=== PATIENT | female | born 1940 | race Caucasian/White ===

== ENCOUNTER 2023-05-28 12:20 | Inpatient (IN) | payer OTHER ==
[2023-05-28 14:19] LABS: BASO % 1.3 % (0-2.0); EOS % 4.6 % (0-4.5); HEMATOCRIT 34.4 % (32.4-45.2); HEMOGLOBIN 11.5 GM/dL (10.7-15.3); LYMPH % 12.4 % (8-40); MCH 29.6 pg (25.7-33.7); MCHC 33.3 g/dl (32.0-36.0); MEAN CELL VOLUME 89.1 fl (80-96); MEAN PLT VOLUME 8.3 fl (7.5-11.1); MONO % 7.3 % (3.8-10.2); NEUT % 74.4 % (42.8-82.8); PLATELET COUNT 281 10^3/uL (134-434); RBC 3.86 M/mm3 (3.60-5.2); RDW 13.3 % (11.6-15.6); WHITE BLOOD COUNT 8.1 K/mm3 (4.0-10.0)
[2023-05-28 14:34] LABS: INR 2.08 (0.83-1.09); PROTHROMBIN TIME (PATIENT) 23.9 SEC (9.7-13.0)
[2023-05-28 14:37] LABS: ACTIVATED PTT 37.9 SECONDS (25.2-36.5)
[2023-05-28 14:48] LABS: POTASSIUM 4.5 mmol/L (3.5-5.1)
[2023-05-28 14:50] LABS: ALBUMIN 3.1 g/dl (3.4-5.0); CALCIUM 9.8 mg/dL (8.5-10.1); MAGNESIUM 2.7 mg/dL (1.8-2.4)
[2023-05-28 14:53] LABS: CREATININE 4.4 mg/dL (0.55-1.3); PHOSPHOROUS 5.4 mg/dL (2.5-4.9)
[2023-05-28 14:55] LABS: BILIRUBIN,TOTAL 0.5 mg/dL (0.2-1); BLOOD UREA NITROGEN 44.2 mg/dL (7-18); TOT PROT 7.2 g/dl (6.4-8.2)
[2023-05-28 15:56] LABS: EPI CELLS 0 /uL (0-25.1); HYALINE CASTS 0 /uL (0-3.1); URINE APPEARANCE CLEAR; URINE BACTERIA 4720 /uL (0-1359); URINE BILIRUBIN NEGATIVE (NEGATIVE); URINE COLOR YELLOW; URINE GLUCOSE (UA) NEGATIVE (NEGATIVE); URINE KETONE NEGATIVE (NEGATIVE); URINE LEUK ESTERASE 3+ (NEGATIVE); URINE NITRITE POSITIVE (NEGATIVE); URINE PROTEIN 1+ (NEGATIVE); URINE RBC 101 /uL (0-23.9); URINE UROBILINOGEN 0.2 mg/dL (0.2-1.0); URINE WBC 1525 /uL (0-25.8)
[2023-05-28] MEDS ORDERED: PIPERACILLIN/TAZOB 2.25 GM 2.25 GM in DEXTROSE 5%-WATER - 50 ML IVPB ONE (17:11)
[2023-05-28] MEDS ORDERED: CEFTRIAXONE 1,000 MG in DEXTROSE 5%-WATER - 50 ML IVPB ONE (17:21)
[2023-05-28] MEDS ORDERED: CEFTRIAXONE 1 GM/50 ML BAG ONE (17:49)
[2023-05-28] MEDS ORDERED: LACTATED RINGERS SOLUTION 1000 ML INFUS.BAG IV ONE (19:00)
[2023-05-28] MEDS ORDERED: ACETAMINOPHEN 1000 MG/100 ML BAG IVPB ONE (19:00)
[2023-05-28] MEDS ORDERED: ACETAMINOPHEN INJECTION 100 ML IVPB ONE (19:57)
[2023-05-28] MEDS ORDERED: TAMSULOSIN HCL 0.4 MG CAP PO SCH (21:32)
[2023-05-28] MEDS ORDERED: LIDOCAINE PATCH REMOVAL MC SCH (22:00)
[2023-05-28] MEDS ORDERED: POLYETHYLENE GLYCOL (HEALTHYLAX) 3350 17 GM PACKET PO PRN (22:57)
[2023-05-28] MEDS ORDERED: LIDOCAINE HCL TP PRN (22:57)
[2023-05-28] MEDS ORDERED: MAG HYDROX/AL HYDROX/SIMETH 30 ML UNIT-DOSE CUP PO PRN (22:57)
[2023-05-28] MEDS ORDERED: SENNOSIDES 8.6MG TABLET (FP) PO PRN (22:57)
[2023-05-28] MEDS ORDERED: LIDOCAINE 5% TOPICAL PATCH TP PRN (22:57)
[2023-05-28] MEDS ORDERED: MEROPENEM 500 MG in DEXTROSE 5%-WATER 100 ML IVPB SCH (23:15)
[2023-05-29] MEDS ORDERED: MEROPENEM 500 MG VIAL (RESTRICTED TO ID) IVPB ONE (00:07)
[2023-05-29 00:48] VITALS: BMI 26.9
[2023-05-29] MEDS ORDERED: ACETAMINOPHEN 1000 MG/100 ML BAG IVPB ONE (02:00)
[2023-05-29] MEDS: BRIMONIDINE TARTRATE 0.15% OPHTHALMIC 5 ML BOTTLE OD SCH ×3 (02:22→21:36)
[2023-05-29] MEDS ORDERED: TAMSULOSIN HCL 0.4 MG CAP PO SCH (08:30)
[2023-05-29] MEDS ORDERED: ONDANSETRON 4 MG/2 ML VIAL IVPUSH PRN ×2 (08:36→10:29)
[2023-05-29] MEDS ORDERED: LACTATED RINGERS SOLUTION 1,000 ML IV SCH ×2 (08:45→10:29)
[2023-05-29] MEDS ORDERED: MIDAZOLAM HCL 2 MG/2 ML SINGLE DOSE VIAL ONE (08:52)
[2023-05-29] MEDS ORDERED: PROPOFOL 20 ML ONE (08:52)
[2023-05-29] MEDS ORDERED: LIDOCAINE HCL/PF 2% SDV 5ML VIAL ONE (08:52)
[2023-05-29] MEDS ORDERED: DEXAMETHASONE SOD PHOSPHATE 4 MG/1 ML VIAL ONE (09:16)
[2023-05-29] MEDS ORDERED: ONDANSETRON 4 MG/2 ML VIAL ONE (09:16)
[2023-05-29] MEDS ORDERED: CYANOCOBALAMIN 1,000 MCG TABLET (FP) PO SCH (10:00)
[2023-05-29] MEDS ORDERED: PANTOPRAZOLE 40 MG TABLET PO SCH (10:00)
[2023-05-29] MEDS ORDERED: TIMOLOL 0.5% OPHTHALMIC SOL 5 ML BOTTLE OD SCH (10:00)
[2023-05-29] MEDS ORDERED: PATIENT'S OWN MEDICATION (NON-FORMULARY) (Menthol/Zinc Oxide [Calmoseptine Ointment] 71 GM TP SCH ×2 (10:00→22:00)
[2023-05-29] MEDS ORDERED: NIFEdipine E.R. 90 MG TABLET PO SCH (10:00)
[2023-05-29] MEDS ORDERED: POLYETHYLENE GLYCOL (HEALTHYLAX) 3350 17 GM PACKET PO PRN (10:29)
[2023-05-29] MEDS ORDERED: LIDOCAINE 5% TOPICAL PATCH TP PRN (10:29)
[2023-05-29] MEDS ORDERED: LIDOCAINE HCL TP PRN (10:29)
[2023-05-29] MEDS ORDERED: SENNOSIDES 8.6MG TABLET (FP) PO PRN (10:29)
[2023-05-29] MEDS ORDERED: MEROPENEM 500 MG in DEXTROSE 5%-WATER 100 ML IVPB SCH ×2 (11:15→23:00)
[2023-05-29 12:52] LABS: HEMATOCRIT 33.5 % (32.4-45.2); HEMOGLOBIN 11.1 GM/dL (10.7-15.3); PLATELET COUNT 268 10^3/uL (134-434); RBC 3.68 M/mm3 (3.60-5.2); RDW 13.1 % (11.6-15.6); WHITE BLOOD COUNT 9.5 K/mm3 (4.0-10.0)
[2023-05-29 13:16] LABS: POTASSIUM 4.2 mmol/L (3.5-5.1)
[2023-05-29 13:19] LABS: CALCIUM 9.2 mg/dL (8.5-10.1)
[2023-05-29 13:20] LABS: ALBUMIN 2.8 g/dl (3.4-5.0); MAGNESIUM 2.4 mg/dL (1.8-2.4)
[2023-05-29 13:23] LABS: CREATININE 3.7 mg/dL (0.55-1.3); PHOSPHOROUS 5.2 mg/dL (2.5-4.9)
[2023-05-29 13:24] LABS: BILIRUBIN,TOTAL 0.5 mg/dL (0.2-1); TOT PROT 6.9 g/dl (6.4-8.2)
[2023-05-29] MEDS: LACTATED RINGERS SOLUTION 1,000 ML IV SCH (15:07)
[2023-05-29] MEDS: CEFTRIAXONE 2 GM in DEXTROSE 5%-WATER 100 ML IVPB SCH (18:04)
[2023-05-29] MEDS: LIDOCAINE PATCH REMOVAL MC SCH (21:37)
[2023-05-30] MEDS: LACTATED RINGERS SOLUTION 1,000 ML IV SCH ×2 (05:36→18:17)
[2023-05-30] MEDS: TAMSULOSIN HCL 0.4 MG CAP PO SCH (08:40)
[2023-05-30 08:51] LABS: HEMATOCRIT 32.1 % (32.4-45.2); HEMOGLOBIN 10.7 GM/dL (10.7-15.3); MCH 30.2 pg (25.7-33.7); MCHC 33.2 g/dl (32.0-36.0); MEAN CELL VOLUME 91.1 fl (80-96); MEAN PLT VOLUME 8.5 fl (7.5-11.1); PLATELET COUNT 278 10^3/uL (134-434); RBC 3.53 M/mm3 (3.60-5.2); RDW 13.2 % (11.6-15.6); WHITE BLOOD COUNT 8.5 K/mm3 (4.0-10.0)
[2023-05-30 09:12] LABS: POTASSIUM 3.9 mmol/L (3.5-5.1)
[2023-05-30 09:15] LABS: BLOOD UREA NITROGEN 31.5 mg/dL (7-18); CALCIUM 8.7 mg/dL (8.5-10.1)
[2023-05-30 09:16] LABS: ALBUMIN 2.7 g/dl (3.4-5.0); MAGNESIUM 2.1 mg/dL (1.8-2.4)
[2023-05-30 09:18] LABS: CREATININE 2.9 mg/dL (0.55-1.3)
[2023-05-30 09:20] LABS: BILIRUBIN,TOTAL 0.2 mg/dL (0.2-1); TOT PROT 6.5 g/dl (6.4-8.2)
[2023-05-30] MEDS: ZINC OXIDE 20% TOPICAL OINTMENT 30 GM TUBE TP SCH (09:53)
[2023-05-30] MEDS: CEFTRIAXONE 2 GM in DEXTROSE 5%-WATER 100 ML IVPB SCH (09:53)
[2023-05-30] MEDS: CYANOCOBALAMIN 1,000 MCG TABLET (FP) PO SCH (09:54)
[2023-05-30] MEDS: PANTOPRAZOLE 40 MG TABLET PO SCH (09:54)
[2023-05-30] MEDS: NIFEdipine E.R. 90 MG TABLET PO SCH (09:54)
[2023-05-30] MEDS: BRIMONIDINE TARTRATE 0.15% OPHTHALMIC 5 ML BOTTLE OD SCH ×2 (09:56→21:46)
[2023-05-30] MEDS: TIMOLOL 0.5% OPHTHALMIC SOL 5 ML BOTTLE OD SCH (10:04)
[2023-05-30] MEDS: LIDOCAINE PATCH REMOVAL MC SCH (22:42)
[2023-05-31] MEDS: LACTATED RINGERS SOLUTION 1,000 ML IV SCH ×2 (06:25→19:03)
[2023-05-31] MEDS: TAMSULOSIN HCL 0.4 MG CAP PO SCH (08:24)
[2023-05-31 09:27] LABS: BASO % 1.7 % (0-2.0); EOS % 8.9 % (0-4.5); HEMATOCRIT 31.5 % (32.4-45.2); LYMPH % 14.7 % (8-40); MCH 30.9 pg (25.7-33.7); MCHC 34.7 g/dl (32.0-36.0); MEAN CELL VOLUME 88.8 fl (80-96); MEAN PLT VOLUME 7.9 fl (7.5-11.1); MONO % 7.2 % (3.8-10.2); NEUT % 67.5 % (42.8-82.8); PLATELET COUNT 260 10^3/uL (134-434); RBC 3.55 M/mm3 (3.60-5.2); RDW 13.2 % (11.6-15.6)
[2023-05-31 09:52] LABS: POTASSIUM 3.6 mmol/L (3.5-5.1)
[2023-05-31 09:54] LABS: ALBUMIN 2.6 g/dl (3.4-5.0)
[2023-05-31 09:55] LABS: BLOOD UREA NITROGEN 24.1 mg/dL (7-18)
[2023-05-31 09:59] LABS: BILIRUBIN,TOTAL 0.2 mg/dL (0.2-1); TOT PROT 6.3 g/dl (6.4-8.2)
[2023-05-31] MEDS: CYANOCOBALAMIN 1,000 MCG TABLET (FP) PO SCH (10:08)
[2023-05-31] MEDS: NIFEdipine E.R. 90 MG TABLET PO SCH (10:08)
[2023-05-31] MEDS: CEFTRIAXONE 2 GM in DEXTROSE 5%-WATER 100 ML IVPB SCH (10:09)
[2023-05-31] MEDS: PANTOPRAZOLE 40 MG TABLET PO SCH (10:09)
[2023-05-31] MEDS: ZINC OXIDE 20% TOPICAL OINTMENT 30 GM TUBE TP SCH (10:12)
[2023-05-31] MEDS: TIMOLOL 0.5% OPHTHALMIC SOL 5 ML BOTTLE OD SCH (10:12)
[2023-05-31] MEDS: BRIMONIDINE TARTRATE 0.15% OPHTHALMIC 5 ML BOTTLE OD SCH ×2 (10:12→21:46)
[2023-05-31] MEDS: LIDOCAINE PATCH REMOVAL MC SCH (21:47)
[2023-06-01] MEDS: TAMSULOSIN HCL 0.4 MG CAP PO SCH (08:43)
[2023-06-01] MEDS: LACTATED RINGERS SOLUTION 1,000 ML IV SCH ×2 (09:30→15:41)
[2023-06-01] MEDS: PANTOPRAZOLE 40 MG TABLET PO SCH (09:31)
[2023-06-01] MEDS: CEFTRIAXONE 2 GM in DEXTROSE 5%-WATER 100 ML IVPB SCH (09:31)
[2023-06-01] MEDS: NIFEdipine E.R. 90 MG TABLET PO SCH (09:31)
[2023-06-01] MEDS: CYANOCOBALAMIN 1,000 MCG TABLET (FP) PO SCH (09:31)
[2023-06-01] MEDS: TIMOLOL 0.5% OPHTHALMIC SOL 5 ML BOTTLE OD SCH (09:35)
[2023-06-01] MEDS: BRIMONIDINE TARTRATE 0.15% OPHTHALMIC 5 ML BOTTLE OD SCH ×2 (09:35→21:29)
[2023-06-01] MEDS: ZINC OXIDE 20% TOPICAL OINTMENT 30 GM TUBE TP SCH (09:36)
[2023-06-01] MEDS ORDERED: BISACODYL 5 MG TABLET.DR (FP) PO PRN (10:01)
[2023-06-01] MEDS: SENNOSIDES 8.6MG TABLET (FP) PO SCH ×2 (10:32→21:28)
[2023-06-01 10:33] LABS: BASO % 1.7 % (0-2.0); EOS % 9.2 % (0-4.5); HEMOGLOBIN 10.8 GM/dL (10.7-15.3); LYMPH % 14.2 % (8-40); MCH 30.6 pg (25.7-33.7); MCHC 33.6 g/dl (32.0-36.0); MEAN PLT VOLUME 8.7 fl (7.5-11.1); MONO % 8.2 % (3.8-10.2); NEUT % 66.7 % (42.8-82.8); PLATELET COUNT 250 10^3/uL (134-434); RBC 3.52 M/mm3 (3.60-5.2); RDW 13.2 % (11.6-15.6); WHITE BLOOD COUNT 6.7 K/mm3 (4.0-10.0)
[2023-06-01 10:57] LABS: POTASSIUM 3.5 mmol/L (3.5-5.1)
[2023-06-01 10:59] LABS: BLOOD UREA NITROGEN 17.1 mg/dL (7-18); MAGNESIUM 1.7 mg/dL (1.8-2.4)
[2023-06-01 11:02] LABS: CREATININE 1.5 mg/dL (0.55-1.3); PHOSPHOROUS 3.2 mg/dL (2.5-4.9)
[2023-06-01 11:07] LABS: CALCIUM 9.3 mg/dL (8.5-10.1)
[2023-06-01] MEDS ORDERED: MAGNESIUM OXIDE 400 MG TABLET (FP) PO ONE (15:05)
[2023-06-01] MEDS: POTASSIUM CHLORIDE 10 MEQ in SODIUM CHLORIDE 0.45% 1,000 ML IVPB SCH (17:36)
[2023-06-01] MEDS: LIDOCAINE PATCH REMOVAL MC SCH (21:30)
[2023-06-02] MEDS: POTASSIUM CHLORIDE 10 MEQ in SODIUM CHLORIDE 0.45% 1,000 ML IVPB SCH (05:20)
[2023-06-02] MEDS: TAMSULOSIN HCL 0.4 MG CAP PO SCH (08:50)
[2023-06-02 09:14] LABS: POTASSIUM 3.4 mmol/L (3.5-5.1)
[2023-06-02 09:18] LABS: CALCIUM 8.8 mg/dL (8.5-10.1)
[2023-06-02 09:19] LABS: ALBUMIN 2.7 g/dl (3.4-5.0); MAGNESIUM 1.6 mg/dL (1.8-2.4)
[2023-06-02 09:21] LABS: PHOSPHOROUS 3.1 mg/dL (2.5-4.9)
[2023-06-02 09:22] LABS: CREATININE 1.4 mg/dL (0.55-1.3)
[2023-06-02 09:23] LABS: BILIRUBIN,TOTAL 0.2 mg/dL (0.2-1); TOT PROT 6.4 g/dl (6.4-8.2)
[2023-06-02] MEDS: CYANOCOBALAMIN 1,000 MCG TABLET (FP) PO SCH (09:58)
[2023-06-02] MEDS: TIMOLOL 0.5% OPHTHALMIC SOL 5 ML BOTTLE OD SCH (09:58)
[2023-06-02] MEDS: BRIMONIDINE TARTRATE 0.15% OPHTHALMIC 5 ML BOTTLE OD SCH ×2 (09:58→21:37)
[2023-06-02] MEDS: NIFEdipine E.R. 90 MG TABLET PO SCH (09:58)
[2023-06-02] MEDS: CEFTRIAXONE 2 GM in DEXTROSE 5%-WATER 100 ML IVPB SCH (09:58)
[2023-06-02] MEDS: PANTOPRAZOLE 40 MG TABLET PO SCH (09:58)
[2023-06-02] MEDS: SENNOSIDES 8.6MG TABLET (FP) PO SCH ×2 (09:58→21:36)
[2023-06-02] MEDS: ZINC OXIDE 20% TOPICAL OINTMENT 30 GM TUBE TP SCH (09:59)
[2023-06-02] MEDS ORDERED: MAGNESIUM 2GM/50ML STERILE WATER IVPB IVPB ONE (10:30)
[2023-06-02] MEDS ORDERED: POTASSIUM CHLORIDE TABS 20 MEQ TABLET.ER (FP) PO ONE (10:30)
[2023-06-02] MEDS ORDERED: POTASSIUM CHLORIDE ORAL LIQUID 20 MEQ/15 ML PO ONE (14:30)
[2023-06-02] MEDS ORDERED: MAGNESIUM OXIDE 400 MG TABLET (FP) PO ONE (14:30)
[2023-06-02] MEDS ORDERED: POTASSIUM CHLORIDE 10 MEQ in SODIUM CHLORIDE 0.45% 1,000 ML IVPB SCH (15:00)
[2023-06-02] MEDS: LIDOCAINE PATCH REMOVAL MC SCH (21:37)
[2023-06-03] MEDS: NIFEdipine E.R. 90 MG TABLET PO SCH (10:33)
[2023-06-03] MEDS: CEFTRIAXONE 2 GM in DEXTROSE 5%-WATER 100 ML IVPB SCH (10:34)
[2023-06-03] MEDS: TIMOLOL 0.5% OPHTHALMIC SOL 5 ML BOTTLE OD SCH (10:34)
[2023-06-03] MEDS: TAMSULOSIN HCL 0.4 MG CAP PO SCH (10:34)
[2023-06-03] MEDS: CYANOCOBALAMIN 1,000 MCG TABLET (FP) PO SCH (10:34)
[2023-06-03] MEDS: SENNOSIDES 8.6MG TABLET (FP) PO SCH ×2 (10:34→21:29)
[2023-06-03] MEDS: PANTOPRAZOLE 40 MG TABLET PO SCH (10:34)
[2023-06-03] MEDS: BRIMONIDINE TARTRATE 0.15% OPHTHALMIC 5 ML BOTTLE OD SCH ×2 (10:34→21:30)
[2023-06-03] MEDS: ZINC OXIDE 20% TOPICAL OINTMENT 30 GM TUBE TP SCH (10:34)
[2023-06-03] MEDS ORDERED: SEVOFLURANE 250 ML BTL ONE (11:15)
[2023-06-03] MEDS ORDERED: SUCCINYLCHOLINE CHLORIDE 200 MG/10 ML SYRINGE ONE (11:15)
[2023-06-03] MEDS ORDERED: ONDANSETRON 4 MG/2 ML VIAL ONE (11:52)
[2023-06-03 12:14] LABS: BLOOD UREA NITROGEN 17.3 mg/dL (7-18)
[2023-06-03 12:16] LABS: PHOSPHOROUS 3.3 mg/dL (2.5-4.9)
[2023-06-03 12:17] LABS: CALCIUM 8.9 mg/dL (8.5-10.1)
[2023-06-03 12:18] LABS: CREATININE 1.6 mg/dL (0.55-1.3); MAGNESIUM 2.2 mg/dL (1.8-2.4)
[2023-06-03] MEDS ORDERED: ONDANSETRON 4 MG/2 ML VIAL IVPUSH PRN ×2 (12:32→12:55)
[2023-06-03] MEDS ORDERED: LACTATED RINGERS SOLUTION 1,000 ML IV SCH ×2 (12:45→12:55)
[2023-06-03] MEDS ORDERED: LIDOCAINE 5% TOPICAL PATCH TP PRN (12:55)
[2023-06-03] MEDS ORDERED: BISACODYL 5 MG TABLET.DR (FP) PO PRN (12:55)
[2023-06-03] MEDS ORDERED: POLYETHYLENE GLYCOL (HEALTHYLAX) 3350 17 GM PACKET PO PRN (12:55)
[2023-06-03] MEDS ORDERED: POTASSIUM CHLORIDE 10 MEQ in SODIUM CHLORIDE 0.45% 1,000 ML IVPB SCH (15:00)
[2023-06-03] MEDS ORDERED: LIDOCAINE PATCH REMOVAL MC SCH (22:00)
[2023-06-04] MEDS ORDERED: TAMSULOSIN HCL 0.4 MG CAP PO SCH (08:30)
[2023-06-04] MEDS: BRIMONIDINE TARTRATE 0.15% OPHTHALMIC 5 ML BOTTLE OD SCH (09:52)
[2023-06-04] MEDS: SENNOSIDES 8.6MG TABLET (FP) PO SCH (09:52)
[2023-06-04] MEDS ORDERED: CEFTRIAXONE 2 GM in DEXTROSE 5%-WATER 100 ML IVPB SCH (10:00)
[2023-06-04] MEDS ORDERED: NIFEdipine E.R. 90 MG TABLET PO SCH (10:00)
[2023-06-04] MEDS ORDERED: ZINC OXIDE 20% TOPICAL OINTMENT 30 GM TUBE TP SCH (10:00)
[2023-06-04] MEDS ORDERED: CYANOCOBALAMIN 1,000 MCG TABLET (FP) PO SCH (10:00)
[2023-06-04] MEDS ORDERED: TIMOLOL 0.5% OPHTHALMIC SOL 5 ML BOTTLE OD SCH (10:00)
[2023-06-04] MEDS ORDERED: PANTOPRAZOLE 40 MG TABLET PO SCH (10:00)
[2023-06-04 10:56] LABS: HEMATOCRIT 34.1 % (32.4-45.2); HEMOGLOBIN 11.1 GM/dL (10.7-15.3); MCH 29.9 pg (25.7-33.7); MCHC 32.6 g/dl (32.0-36.0); MEAN CELL VOLUME 91.7 fl (80-96); MEAN PLT VOLUME 8.9 fl (7.5-11.1); PLATELET COUNT 256 10^3/uL (134-434); RBC 3.72 M/mm3 (3.60-5.2); RDW 13.5 % (11.6-15.6); WHITE BLOOD COUNT 8.6 K/mm3 (4.0-10.0)
[2023-06-04 11:24] LABS: ALBUMIN 2.8 g/dl (3.4-5.0); CALCIUM 9.4 mg/dL (8.5-10.1)
[2023-06-04 11:25] LABS: MAGNESIUM 2.1 mg/dL (1.8-2.4)
[2023-06-04 11:26] LABS: PHOSPHOROUS 3.4 mg/dL (2.5-4.9)
[2023-06-04 11:27] LABS: CREATININE 1.4 mg/dL (0.55-1.3)
[2023-06-04 11:28] LABS: BILIRUBIN,TOTAL 0.2 mg/dL (0.2-1); TOT PROT 6.5 g/dl (6.4-8.2)
[2023-06-04 11:40] VITALS: RESP 18
[2023-06-04 17:33] VITALS: BP 116/59; PULSE 62; TEMP 98.9
== END 2023-06-04 17:43 | DRG 660 ==
LOC: JER 12:20 → JERBED 15:56 → J5S 05-29 01:03
PROVIDERS: ADMIT Internal Medicine
PROC: 0T778DZ Dilation of Left Ureter with Intraluminal Device, Via Natural or Artificial Opening Endoscopic (ICD-10-PCS; principal; 2023-06-03 12:00)
PROC: 0TF78ZZ Fragmentation in Left Ureter, Via Natural or Artificial Opening Endoscopic (ICD-10-PCS; 2023-06-03 12:00)
PROC: 0TP98DZ Removal of Intraluminal Device from Ureter, Via Natural or Artificial Opening Endoscopic (ICD-10-PCS; 2023-06-03 12:00)
PROC: BT1FZZZ Fluoroscopy of Left Kidney, Ureter and Bladder (ICD-10-PCS; 2023-06-03 12:00)
DX: N13.6 Pyonephrosis (principal); E87.0 Hyperosmolality and hypernatremia; I27.82 Chronic pulmonary embolism; E78.5 Hyperlipidemia, unspecified; N17.9 Acute kidney failure, unspecified; I12.9 Hypertensive chronic kidney disease with stage 1 through stage 4 chronic kidney disease, or unspecified chronic kidney disease; N18.9 Chronic kidney disease, unspecified; F20.9 Schizophrenia, unspecified; K21.9 Gastro-esophageal reflux disease without esophagitis; B96.20 Unspecified Escherichia coli [E. coli] as the cause of diseases classified elsewhere; I10 Essential (primary) hypertension; R79.1 Abnormal coagulation profile; D64.9 Anemia, unspecified; Z88.0 Allergy status to penicillin
CPT/HCPCS: 36415; 71045-TC-FY; 76000-TC-FY; 80048; 80053; 81003; 82360; 82550; 82570; 83735; 84100; 84156; 84300; 84550; 85025; 85027; 85610; 85730; 86850; 86900; 86901; 87086; 87186; 87635; 93005; 93010; 94760; 97116-GP; 97162-GP; 99285-25; C1758; C2617

== ENCOUNTER 2024-03-01 04:11 | Day surgery (SDC) | payer OTHER ==
[2024-02-15 08:58] VITALS: BMI 31.8
[2024-03-01 06:50] VITALS: RESP 20
[2024-03-01] MEDS ORDERED: MIDAZOLAM HCL 2 MG/2 ML SINGLE DOSE VIAL ONE (08:23)
[2024-03-01] MEDS: ceFAZolin SODIUM 1 GM VIAL IVPB ONE (08:35)
[2024-03-01] MEDS ORDERED: ceFAZolin SODIUM 1 GM VIAL ONE (08:36)
[2024-03-01] MEDS ORDERED: PROPOFOL 20 ML ONE (08:38)
[2024-03-01 10:50] VITALS: BP 140/70; PULSE 60; TEMP 97
== END 2024-03-01 10:35 | disposition home or self-care (01) ==
LOC: JASU-SURG 04:11
PROVIDERS: ATTEND Urology
PROC: 0TF4XZZ Fragmentation in Left Kidney Pelvis, External Approach (ICD-10-PCS; principal; 2024-03-01 08:30)
DX: N20.0 Calculus of kidney (principal)

== ENCOUNTER 2024-06-21 11:26 | Emergency (ER) | payer OTHER ==
[2024-06-21 11:32] VITALS: BP 131/85; PULSE 61; RESP 18; TEMP 97.4; BMI 29.7
== END 2024-06-21 12:50 | disposition home or self-care (01) ==
LOC: JER 11:26
DX: S00.83XA Contusion of other part of head, initial encounter (principal); W01.198A Fall on same level from slipping, tripping and stumbling with subsequent striking against other object, initial encounter; Y93.H2 Activity, gardening and landscaping
CPT/HCPCS: 99283-25

== ENCOUNTER 2025-02-04 21:57 | Inpatient (IN) | payer OTHER, BC ==
[2025-02-04 23:41] LABS: HEMATOCRIT 43.2 % (34.1-44.9); HEMOGLOBIN 14.3 g/dL (11.2-15.7); MCHC 33.1 g/dl (32.2-35.5); MEAN CELL VOLUME 91.1 fl (79.4-94.8); PLATELET COUNT 206 x10^3/uL (182-369); RDW 12.3 % (12.5-17.0)
[2025-02-05 00:01] LABS: POTASSIUM 3.9 mmol/L (3.5-5.1)
[2025-02-05 00:02] LABS: INR 2.14 (0.83-1.09); PROTHROMBIN TIME (PATIENT) 23.5 SEC (9.7-13.0)
[2025-02-05 00:03] LABS: BLOOD UREA NITROGEN 33.6 mg/dL (7-18); CALCIUM 9.7 mg/dL (8.5-10.1)
[2025-02-05 00:04] LABS: ALBUMIN 3.4 g/dl (3.4-5.0); MAGNESIUM 2.3 mg/dL (1.8-2.4)
[2025-02-05 00:05] LABS: ACTIVATED PTT 33.5 SECONDS (25.2-36.5)
[2025-02-05 00:08] LABS: CREATININE 2.2 mg/dL (0.55-1.3)
[2025-02-05 00:10] LABS: BILIRUBIN,TOTAL 0.9 mg/dL (0.2-1)
[2025-02-05] MEDS: SODIUM CHLORIDE 1,000 ML IV STA (00:27)
[2025-02-05 00:31] LABS: EPI CELLS 14 /uL (0-25.1); HYALINE CASTS 1 /uL (0-3.1); PH,URINE 6.5 (5.0-8.0); URINE APPEARANCE TURBID; URINE BILIRUBIN NEGATIVE (NEGATIVE); URINE COLOR ORANGE; URINE GLUCOSE (UA) 1+ (NEGATIVE); URINE KETONE TRACE (NEGATIVE); URINE LEUK ESTERASE 3+ (NEGATIVE); URINE NITRITE NEGATIVE (NEGATIVE); URINE PROTEIN 3+ (NEGATIVE); URINE RBC 8284 /uL (0-23.9); URINE WBC 7277 /uL (0-25.8)
[2025-02-05] MEDS ORDERED: ASPIRIN 325 MG TABLET ONE (00:50)
[2025-02-05] MEDS: ASPIRIN 325 MG TABLET PO ONE (01:03)
[2025-02-05 05:09] VITALS: BMI 27.3
[2025-02-05] MEDS: SODIUM CHLORIDE 1,000 ML IV SCH (05:20)
[2025-02-05] MEDS: POLYETHYLENE GLYCOL (HEALTHYLAX) 3350 17 GM PACKET PO ONE (06:47)
[2025-02-05] MEDS: TAMSULOSIN HCL 0.4 MG CAP PO SCH (08:29)
[2025-02-05 09:32] LABS: HEMATOCRIT 39.4 % (34.1-44.9); HEMOGLOBIN 13.2 g/dL (11.2-15.7); MCHC 33.5 g/dl (32.2-35.5); MEAN CELL VOLUME 91.2 fl (79.4-94.8); MEAN PLT VOLUME 10.4 fl (9.4-12.3); PLATELET COUNT 192 x10^3/uL (182-369); RDW 12.4 % (12.5-17.0)
[2025-02-05 09:48] LABS: POTASSIUM 3.6 mmol/L (3.5-5.1)
[2025-02-05 09:50] LABS: ALBUMIN 2.9 g/dl (3.4-5.0)
[2025-02-05 09:51] LABS: BLOOD UREA NITROGEN 41.2 mg/dL (7-18); MAGNESIUM 2.4 mg/dL (1.8-2.4)
[2025-02-05 09:54] LABS: CREATININE 2.1 mg/dL (0.55-1.3); PHOSPHOROUS 2.6 mg/dL (2.5-4.9)
[2025-02-05 09:55] LABS: BILIRUBIN,TOTAL 1.3 mg/dL (0.2-1); TOT PROT 6.2 g/dl (6.4-8.2)
[2025-02-05] MEDS: BISACODYL 10 MG SUPP.RECT PR ONE (16:30)
[2025-02-06 08:13] LABS: HEMATOCRIT 36.3 % (34.1-44.9); HEMOGLOBIN 11.9 g/dL (11.2-15.7); MCHC 32.8 g/dl (32.2-35.5); MEAN CELL VOLUME 91.9 fl (79.4-94.8); MEAN PLT VOLUME 10.5 fl (9.4-12.3); PLATELET COUNT 179 x10^3/uL (182-369); RDW 12.2 % (12.5-17.0)
[2025-02-06 08:30] LABS: POTASSIUM 3.7 mmol/L (3.5-5.1)
[2025-02-06 08:44] LABS: CALCIUM 8.6 mg/dL (8.5-10.1)
[2025-02-06 08:45] LABS: ALBUMIN 2.5 g/dl (3.4-5.0); BLOOD UREA NITROGEN 41.3 mg/dL (7-18); MAGNESIUM 2.2 mg/dL (1.8-2.4)
[2025-02-06 08:48] LABS: BILIRUBIN,TOTAL 0.6 mg/dL (0.2-1); CREATININE 1.7 mg/dL (0.55-1.3); PHOSPHOROUS 2.8 mg/dL (2.5-4.9); TOT PROT 5.4 g/dl (6.4-8.2)
[2025-02-07 07:11] LABS: HEMATOCRIT 37.5 % (34.1-44.9); HEMOGLOBIN 12.2 g/dL (11.2-15.7); MCHC 32.5 g/dl (32.2-35.5); MEAN CELL VOLUME 91.9 fl (79.4-94.8); MEAN PLT VOLUME 10.1 fl (9.4-12.3); PLATELET COUNT 187 x10^3/uL (182-369)
[2025-02-07 07:25] LABS: POTASSIUM 3.6 mmol/L (3.5-5.1)
[2025-02-07 07:29] LABS: MAGNESIUM 2.1 mg/dL (1.8-2.4)
[2025-02-07 07:30] LABS: ALBUMIN 2.4 g/dl (3.4-5.0); CALCIUM 8.6 mg/dL (8.5-10.1)
[2025-02-07 07:32] LABS: CREATININE 1.1 mg/dL (0.55-1.3); PHOSPHOROUS 2.2 mg/dL (2.5-4.9)
[2025-02-07 07:34] LABS: BILIRUBIN,TOTAL 0.4 mg/dL (0.2-1); TOT PROT 5.4 g/dl (6.4-8.2)
[2025-02-07] MEDS ORDERED: REGADENOSON 0.4 MG/5 ML PRE-FILLED SYRINGE IVPUSH ONE (09:30)
[2025-02-07] MEDS ORDERED: PATIENT'S OWN MEDICATION (NON-FORMULARY) (Nifedipine [Nifedipine Er] 90 MG Tablet.Er) PO SCH (10:00)
[2025-02-07] MEDS ORDERED: NIFEdipine E.R. 90 MG TABLET PO SCH (10:00)
[2025-02-07] MEDS: REGADENOSON 0.4 MG/5 ML PRE-FILLED SYRINGE IVPUSH ONE (11:40)
[2025-02-07] MEDS: NIFEdipine E.R. 90 MG TABLET PO ONE (13:31)
[2025-02-07] MEDS: NAPH,MB-DB/K PH,MBDB POWDER PACKET PO SCH (15:17)
[2025-02-08 07:37] LABS: HEMATOCRIT 36.7 % (34.1-44.9); HEMOGLOBIN 12.1 g/dL (11.2-15.7); MEAN CELL VOLUME 92.9 fl (79.4-94.8); MEAN PLT VOLUME 10.2 fl (9.4-12.3); PLATELET COUNT 185 x10^3/uL (182-369)
[2025-02-08 07:57] LABS: POTASSIUM 3.3 mmol/L (3.5-5.1)
[2025-02-08 08:07] LABS: BLOOD UREA NITROGEN 17.9 mg/dL (7-18); CALCIUM 8.4 mg/dL (8.5-10.1)
[2025-02-08 08:08] LABS: ALBUMIN 2.5 g/dl (3.4-5.0); MAGNESIUM 1.9 mg/dL (1.8-2.4)
[2025-02-08 08:11] LABS: PHOSPHOROUS 2.5 mg/dL (2.5-4.9)
[2025-02-08 08:12] LABS: BILIRUBIN,TOTAL 0.4 mg/dL (0.2-1); TOT PROT 5.5 g/dl (6.4-8.2)
[2025-02-08] MEDS: NIFEdipine E.R. 90 MG TABLET PO SCH (09:41)
[2025-02-08] MEDS: POTASSIUM CHLORIDE ORAL LIQUID 20 MEQ/15 ML PO ONE (09:41)
[2025-02-08] MEDS ORDERED: PROPOFOL 20 ML ONE (12:39)
[2025-02-08] MEDS ORDERED: ONDANSETRON 4 MG/2 ML VIAL ONE (12:39)
[2025-02-08] MEDS ORDERED: DEXAMETHASONE SOD PHOSPHATE 4 MG/1 ML VIAL ONE (12:39)
[2025-02-08] MEDS ORDERED: KETOROLAC TROMETHAMINE 30 MG/1 ML VIAL ONE (12:39)
[2025-02-08] MEDS: IOHEXOL 300 MG/ML INFUS..BTL IJ ONE (13:17)
[2025-02-08] MEDS: SODIUM CHLORIDE 1,000 ML IV SCH (15:05)
[2025-02-09 07:17] LABS: HEMATOCRIT 35.4 % (34.1-44.9); HEMOGLOBIN 11.7 g/dL (11.2-15.7); MCHC 33.1 g/dl (32.2-35.5); MEAN CELL VOLUME 91.2 fl (79.4-94.8); MEAN PLT VOLUME 9.5 fl (9.4-12.3); PLATELET COUNT 201 x10^3/uL (182-369); RDW 11.9 % (12.5-17.0)
[2025-02-09 07:46] LABS: POTASSIUM 3.6 mmol/L (3.5-5.1)
[2025-02-09 07:48] LABS: CALCIUM 8.2 mg/dL (8.5-10.1)
[2025-02-09 07:49] LABS: MAGNESIUM 1.5 mg/dL (1.8-2.4)
[2025-02-09 07:50] LABS: ALBUMIN 2.4 g/dl (3.4-5.0); BLOOD UREA NITROGEN 14.3 mg/dL (7-18)
[2025-02-09 07:52] LABS: CREATININE 0.9 mg/dL (0.55-1.3); PHOSPHOROUS 2.4 mg/dL (2.5-4.9)
[2025-02-09 07:53] LABS: BILIRUBIN,TOTAL 0.4 mg/dL (0.2-1)
[2025-02-09 07:54] LABS: TOT PROT 5.3 g/dl (6.4-8.2)
[2025-02-09] MEDS ORDERED: APIXABAN 5 MG TABLET PO SCH (10:00)
[2025-02-09] MEDS: TAMSULOSIN HCL 0.4 MG CAP PO SCH (10:06)
[2025-02-09] MEDS: NIFEdipine E.R. 90 MG TABLET PO SCH (10:06)
[2025-02-09] MEDS: APIXABAN 5 MG TABLET PO ONE (10:46)
[2025-02-09] MEDS: NAPH,MB-DB/K PH,MBDB POWDER PACKET PO ONE (13:29)
[2025-02-09] MEDS: MAGNESIUM OXIDE 400 MG TABLET (FP) PO ONE (13:29)
[2025-02-09] MEDS: APIXABAN 5 MG TABLET PO SCH (20:42)
[2025-02-10 06:42] LABS: HEMATOCRIT 35.6 % (34.1-44.9); HEMOGLOBIN 12.2 g/dL (11.2-15.7); MCHC 34.3 g/dl (32.2-35.5); MEAN CELL VOLUME 91.8 fl (79.4-94.8); MEAN PLT VOLUME 9.6 fl (9.4-12.3); PLATELET COUNT 231 x10^3/uL (182-369); RDW 11.9 % (12.5-17.0)
[2025-02-10 07:01] LABS: POTASSIUM 3.9 mmol/L (3.5-5.1)
[2025-02-10 07:17] LABS: ALBUMIN 2.5 g/dl (3.4-5.0); BLOOD UREA NITROGEN 13.2 mg/dL (7-18); CALCIUM 8.4 mg/dL (8.5-10.1); MAGNESIUM 1.7 mg/dL (1.8-2.4)
[2025-02-10 07:21] LABS: BILIRUBIN,TOTAL 0.4 mg/dL (0.2-1); PHOSPHOROUS 2.6 mg/dL (2.5-4.9); TOT PROT 5.4 g/dl (6.4-8.2)
[2025-02-10] MEDS: MAGNESIUM OXIDE 400 MG TABLET (FP) PO ONE (09:53)
[2025-02-10 13:10] VITALS: BP 122/71; PULSE 68; RESP 15; TEMP 97.8
== END 2025-02-10 14:45 | disposition home health service (06) | DRG 661 ==
LOC: JER 21:57 → JERBED 02-05 02:34 → J4S 02-05 04:11
PROVIDERS: ADMIT Hospitalist; ATTEND Internal Medicine
PROC: 0T778DZ Dilation of Left Ureter with Intraluminal Device, Via Natural or Artificial Opening Endoscopic (ICD-10-PCS; principal; 2025-02-08 13:00)
DX: N13.6 Pyonephrosis (principal); F03.90 Unspecified dementia, unspecified severity, without behavioral disturbance, psychotic disturbance, mood disturbance, and anxiety; I12.9 Hypertensive chronic kidney disease with stage 1 through stage 4 chronic kidney disease, or unspecified chronic kidney disease; N18.9 Chronic kidney disease, unspecified; N13.0 Hydronephrosis with ureteropelvic junction obstruction; N17.9 Acute kidney failure, unspecified
CPT/HCPCS: 0241U-QW; 36415; 70450-TC; 71045-TC-FY; 72125-TC; 72170-TC-FY; 73590-TC-LT-FY; 73610-TC-LT-FY; 74176-TC; 76000-TC-FY; 78452-TC; 80053; 81003; 82550; 82553; 83735; 83874; 84100; 84484; 85025; 85027; 85610; 85730; 86850; 86900; 86901; 87086; 87186; 93005; 93010; 93017; 93306-TC; 94760; 97116-GP; 97161-GP; 99285-25; A9502; C2617; J2785